=== PATIENT | male | born 1960 | race Caucasian/White ===

== ENCOUNTER 2025-08-30 06:48 | Outpatient (OUT) | payer BC, SELFPAY ==
--- NOTE | 2025-08-30 | NM_ITS ---
Patient Name: DONTE WHELAN MR#: [id number] : 1960 Exam Date: 08/30/2025 Ordering Doctor: DR CARO VAUGNH M.D. RADIOLOGY REPORT PROCEDURE: NM DOMENICA PERF SPECT REST STR COMPARISON: None. INDICATIONS: CHEST PAIN TECHNIQUE: Exam Description: Stress/Rest two day protocol gated SPECT Rest Imagin.3 mCi Tc-99m Cardiolite IV on 08/30/2025 Stress Imaging 31.9 mCi Tc-99m Cardiolite IV on 08/30/2025 Exercise Protocol: Philippe Heart Rate (bpm): Rest: 60 Max: 134 PMHR: 85 Blood Pressure: Rest: 128/70 Max: 150/88 Exercise Time: Minutes: 10 Seconds: 06 Stage Reached: Stage: 4 Mets 13.40 Symptoms: None Rest and peak stress ECG findings were pending, and the exercise portion of the study was pending per attending physician [facility]. For more details, please see separate cardiac stress test report. FINDINGS: QUALITY OF STUDY: Good PERFUSION DEFECT: LOCATION: N/A SIZE: N/A SEVERITY: N/A TYPE: N/A WALL MOTION: Normal wall motion LV SIZE: 98 mL. TID / TCD: 0.9 LVEF: Calculated EF 63%. SUMMARY: Myocardial perfusion imaging study is normal CONCLUSION: 1. Myocardial perfusion is normal 2. Global left ventricular systolic function is normal; ejection fraction is 63% 3. No transient ischemic dilatation Dictated by: Vincent Rios M.D. on 08/30/2025 at 16:56 Approved by: Vincent Rios M.D. on 08/30/2025 at 16:58
--- OUTSIDE RECORDS SUMMARY | 2025-08-30 06:52 | XMS_ITS | Clinical Summary ---
Author Organization [facility] Address [address], [address] [place] [address] Care Team Providers Care Personnel Representative Name Role Phone Stefania Gaytan MD Primary Care Provider [phone] Allergies No known active allergies Medications buprenorphine-na loxone (SUBOXONE) 8-[address] tablet Place 8 mg under the tongue 2 times daily. Active hyoscyamine (LEVBID) 0.375 MG CR tablet Take 1 tablet by mouth every 12 hours as needed for Cramping. 10 tablet 0 04/24/2014 Active Social History Tobacco Use Types Packs/Day Years Used Date Smoking Tobacco: Every Day Cigarettes Sex and Gender Information Value Date Recorded Sex Assigned at Not on file Legal Sex Male 9:22 AM EST Gender Identity Not on file Sexual Orientation Not on file Last Filed Vital Signs Vital Sign Reading Time Taken Comments Blood Pressure 92/58 04/24/2014 4:50 PM EDT Pulse 71 04/24/2014 4:50 PM EDT Temperature 36.8 C (98.2 F) 04/24/2014 4:50 PM EDT Respiratory Rate 16 04/24/2014 4:50 PM EDT Oxygen Saturation 94% 04/24/2014 4:46 PM EDT Inhaled Oxygen Concentration - - Weight 86.2 kg (190 lb) 04/24/2014 12:23 PM EDT Height - - Body Mass Index - - Plan of Treatment Not on file Care Teams Personnel Representative Relationship Specialty Start Date End Date Stefania Gaytan MD PCP - General 04/24/14
--- OUTSIDE RECORDS SUMMARY | 2025-08-30 06:52 | XMS_ITS | Encounter Summary ---
Author Organization [facility] Address [address] [facility] [place] [address] Care Team Providers Care Core Stacker Name Role Phone Stefania Gaytan MD Primary Care Provider Encounter Details Date Type Department Care Team (Latest Contact Info) Description 08/22/2025 Travel Social History Tobacco Use Types Packs/Day Years Used Date Smoking Tobacco: Every Day Cigarettes Comments:31 or more cigarett es a day, starts smoking 6-30 minutes after waking up Alcohol Use Standard Drinks/Week Comments Never 0 (1 standard drink = 0.6 oz pur e alcohol) Caffeine Intake: Coffee PHQ-2 Answer Date Recorded Patient Health Questionnaire-2 Score 2 07/30/2025 Sex and Gender Information Value Date Recorded Sex Assigned at Not on file Legal Sex Male 7:12 PM EDT Gender Identity Not on file Sexual Orientation Not on file documented as of this encounter Plan of Treatment Upcoming Encounters Date Type Department Care Team (Late st Contact Info) Description 09/10/2025 3:15 PM EDT Office Visit [facility] [address] [facility] [address] [place] [id number] Aguilar Gonzalez MD [address] [facility] [address] [place] [address] documented as of this encounter Visit Diagnoses Not on filedocumented in this encounter Care Teams Core Stacker Relationship Specialty Start Date End Date Stefania Gaytan MD [address] [facility] [address] [place] [address] PCP - General Family Medicine 03/22/23 documented as of this encounter
--- OUTSIDE RECORDS SUMMARY | 2025-08-30 06:52 | XMS_ITS | Clinical Summary ---
Author Organization [facility] Address [address] [place] [address] Care Team Providers Care Aged Or Disabled Care Worker Name Role Phone Stefania Gaytan MD Primary Care Provider [phone] Allergies No known active allergies Medications rosuvastatin (Crestor) 20 MG tabletIndication s:Dyslipidemia Take 1 tablet (20 mg) by mouth Daily 30 tablet 5 08/06/2025 Active Active Problems Problem Noted Date Diagnosed Date Chest pain 07/30/2025 Diarrhea 07/30/2025 Assessment & Plan (07/30/2025 4:49 PM EDT): Colonoscopy Encounter for screening colonoscopy 07/30/2025 Assessment & Plan (07/30/2025 4:46 PM EDT): Referral sent Abnormal glucose tolerance test 01/03/2024 Benign essential hypertension 01/03/2024 Assessment & Plan (01/03/2024 4:36 PM EST): Our specific goals, for your hypertension, is to keep your blood pressure less than 140/90, and the importance of weight control. We made recommendations on how to control your blood pressure, and minimize your risk of these copmplications. We also discussed your current barriers to a healthy living and importance of healthy diet and exercise. Prior to your visit today we have reviewed your chart and formed a plan to assist with providing you the best possible care. We reviewed the possible complications of hypertension including, stroke, heart failure and kidney impairment. In addition, we discussed your medications, the importance of taking them as prescribed. DASH diet handouts Well adult health check 01/03/2024 Assessment & Plan (07/30/2025 4:35 PM EDT): Modest Alcohol consumption No Tobacco Seat Belt use Exercise Regularly No Text Drive Social Accountability Pain in both knees 01/03/2024 Assessment & Plan (01/03/2024 4:36 PM EST): I discussed with patient that while on prednisone, do not take any NSAIDs like Ibuprofen, Naprosyn, Alleve or motrin. Watch for any side effects like abdominal pain and nausea. Take the prednisone with food or milk. Prednisone may increase appetite. While on prednisone, watch for any sugar elevations. Chronic pain of both shoulders 01/03/2024 Assessment & Plan (01/03/2024 4:39 PM EST): I discussed with patient that while on prednisone, do not take any NSAIDs like Ibuprofen, Naprosyn, Alleve or motrin. Watch for any side effects like abdominal pain and nausea. Take the prednisone with food or milk. Prednisone may increase appetite. While on prednisone, watch for any sugar elevations. Anxiety state 10/12/2023 Chronic obstructive pulmonar y disease with acute lower respiratory infection 10/12/2023 Other psychoactive substance dependence, uncompl icated 10/12/2023 Assessment & Plan (07/30/2025 4:43 PM EDT): resolved Severe acute respiratory syn drome coronavirus 2 (SARS-CoV-2) detected 10/12/2023 Smoker 10/12/2023 Assessment & Plan (07/30/2025 4:43 PM EDT): Discussed smoking cessation with the patient. Encouraged patient to try to cut back gradually and soon quit smoking. Discussed ways to quit smoking including gum, patches, medication, and gradually reducing the number of cigarettes smoked daily. Discussed potential health risks of mcc smoking. Patient voiced understanding. Benefits of cessation, both health and financial, were reviewed. Encounters Date Type Department Care Team Description 08/22/2025 Travel 08/08/2025 3:00 PM EDT Ancillary Procedure [facility] [address] [place] [phone] Bilateral carotid bruits 08/08/2025 Travel 08/05/2025 Results Follow-Up [facility] [address] [place] [address] Stefania Gaytan MD CBC and differential, Comprehensive metabolic panel, Lipid panel, Additional followed-up results: 2 08/01/2025 Abstract [facility] [address] [place] [address] Stefania Gaytan MD 07/30/2025 4:30 PM EDT Office Visit [facility] [address] [address] [place] [address] Stefania Gaytan MD Well adult health check (Primary Dx); Other psychoactive substance dependence, uncomplicated (HCC); Smoker; Chest pain, unspecified type; Encounter for screening colonoscopy; Diarrhea, unspecified type; Bilateral carotid bruits 07/30/2025 Bamboo flowsheet [facility] [address] [address] [place] [address] Stefania Gaytan MD 07/30/2025 Travel from Last 3 Months Immunizations Immunization Administration Dates Next Due Influenza, Recombinant, inje ctable, preservative free 09/11/2024 Influenza, injectable, MDCK, preservative free, quadrivalent 10/13/2023,10/29/2022,09/14/2020 Family History Medical History Relation Name Comments Stroke Mother Relation Name Status Comments Mother Alive Social History Tobacco Use Types Packs/Day Years Used Date Smoking Tobacco: Every Day Cigarettes Tobacco Cessation:Ready to Q uit: Not Asked; Counseling Given: Yes Comments:31 or more cigarettes a day, starts smoking 6-30 minutes after [...] Sign Reading Time Taken Comments Blood Pressure 128/80 07/30/2025 4:30 PM EDT Pulse 77 07/30/2025 4:30 PM EDT Temperature - - Respiratory Rate 16 07/30/2025 4:30 PM EDT Oxygen Saturation 97% 07/30/2025 4:30 PM EDT Inhaled Oxygen Concentration - - Weight 82.1 kg (181 lb) 07/30/2025 4:30 PM EDT Height 172.7 cm (5' 8 ) 07/30/2025 4:30 PM EDT Body Mass Index 27.52 07/30/2025 4:30 PM EDT Plan of Treatment Upcoming Encounters Date Type Department Care Team (Late st Contact Info) Description 09/10/2025 3:15 PM EDT Office Visit [facility] [address] [phone] Aguilar Gonzalez MD [address] [facility] [address] [place] [address] Health Maintenance Due Date Last Done Comments CT Colonography 1960 FIT-DNA 1960 FIT 1960 FOBT 1960 Sigmoidoscopy 1960 Colonoscopy 05/03/2023 05/03/2013 Colorectal Cancer Screening 05/03/2023 Influenza Vaccine (#1) 2025 4, 10/13/2023, 10/29/2022, Additional history exists Procedures Procedure Name Priority Date/Time Associated Diagnosis Comments VASC US CAROTID ARTERY DUPLEX BILATERAL Routine 08/08/2025 3:29 PM EDT Bilateral carotid bruits PSA, TOTAL Routine 07/30/2025 4:52 PM EDT Well adult health check LIPID PANEL Routine 07/30/2025 4:52 PM EDT Well adult health check COMPREHENSIVE METABOLIC PANEL Routine 07/30/2025 4:52 PM EDT Well adult health check CBC (INCLUDES DIFF/PLT) Routine 07/30/2025 4:52 PM EDT Well adult health check COLONOSCOPY Routine 05/03/2013 12:00 PM EDT from Last 3 Months or Most Recently Relevant to Health Maintenance Results * Vascular US carotid artery duplex bilateral (08/08/2025 3:29 PM EDT) Anatomical Region Laterality Modality Neck Ultrasound 08/09/2025 2:18 PM EDT Impressions 08/09/2025 2:23 PM EDT Less than 50% stenosis predicted of the bilateral internal carotid arteries. Antegrade flow of both vertebral arteries. Validated velocity measurements with angiographic measurements, velocity criteria are extrapolated from diameter data as defined by the Society of Radiologist in Ultrasound Consensus Conference Radiology 2003; 229;340-346. ELECTRONICALLY SIGNED BY: Lester Dalal DO Narrative 08/09/2025 2:23 PM EDT HISTORY: Carotid bruit COMPARISON: None available FINDINGS: The bilateral carotid duplex ultrasound study demonstrates the following: RIGHT LEFT Carotid plaque burden Mild Mild Common carotid artery 70 cm/s 68 cm/s Proximal internal carotid artery 100 cm/s 59 cm/s Mid internal carotid artery 121 cm/s 129 cm/s Distal internal carotid artery 111 cm/s 72 cm/s External carotid artery 172 cm/s 157 cm/s ICA/CCA ratio 1.45 1.55 Vertebral arteries antegrade flow Yes Yes Procedure Note Lester Dalal DO - 08/09/2025 HISTORY: Carotid bruit COMPARISON: None available FINDINGS: The bilateral carotid duplex ultrasound study demonstrates thefollowing: RIGHTLEFT Carotid plaque burden Mild Mild Common carotid artery 70 cm/s 68 cm/s Proximal internal carotid artery 100 cm/s 59 cm/s Mid internal carotid artery 121 cm/s 129cm/s Distal internal carotid artery 111 cm/s 72cm/s External carotid artery 172 cm/s 157cm/s ICA/CCA ratio 1.451.55 Vertebral arteries antegrade flow Yes Yes IMPRESSION: Less than 50% stenosis predicted of the bilateral internal carotidarteries. Antegrade flow of both vertebral arteries. Validated velocity measurements with angiographic measurements, velocitycriteria are extrapolated from diameter data as defined by the Society ofRadiologist in Ultrasound Consensus Conference Radiology 2003;229;340-346. ELECTRONICALLY SIGNED BY: Lester Dalal DO us Stefania Gaytan MD IMG US PROCEDURES Final Result * CBC and differential (07/30/2025 4:52 PM EDT) [facility] WHITE BLOOD CELL COUNT 9.5 3.8 - 10.8 Thousand/u L [facility] RED BLOOD CELL COUNT 4.95 4.20 - 5.80 Million/uL [facility] HEMOGLOBIN 15.4 13.2 - 17.1 g/dL [facility] HEMATOCRIT 46.0 38.5 - 50.0 % [facility] MCV 92.9 80.0 - 100.0 fL [facility] MCH 31.1 27.0 - 33.0 pg [facility] MCHC 33.5 32.0 - 36.0 g/dL [facility] Comment: For adults, a slight decrease in the calculated MCHC value (in the range of 30 to 32 g/dL) is most likely not clinically significant; however, it should be interpreted with caution in correlation with other red cell parameters and the patient's clinical condition. RDW 12.5 11.0 - 15.0 % [facility] PLATELET COUNT 263 140 - 400 Thousand/u L [facility] MPV 10.7 7.5 - 12.5 fL [facility] ABSOLUTE NEUTROPHILS 5,681 1,500 - 7,800 cells/uL [facility] ABSOLUTE LYMPHOCYTES 3,031 850 - 3,900 cells/uL [facility] ABSOLUTE MONOCYTES 618 200 - 950 cells/uL [facility] ABSOLUTE EOSINOPHILS 133 15 - 500 cells/uL [facility] ABSOLUTE BASOPHILS 38 0 - 200 cells/uL [facility] NEUTROPHILS 59.8 % [facility] LYMPHOCYTES 31.9 % [facility] MONOCYTES 6.5 % [facility] EOSINOPHILS 1.4 % [facility] BASOPHILS 0.4 % [facility] Blood Venous blood specimen / Unknown 07/30/2025 4:52 PM EDT 07/30/2025 4:52 PM EDT Narrative [facility] - 07/31/2025 7:49 AM EDT FASTING:YES FASTING: YES Resulting Agency Comment Performing Organization Information Site ID: QPT Name: [facility] Address: [address] [place] [address], [address] [place] [id number] Director: Gunner Katz MD us Stefania Gaytan MD LAB BLOOD ORDERABLES Final Resul t [facility] * PSA (07/30/2025 4:52 PM EDT) PSA, TOTAL 0.65 < OR = 4.00 ng/mL [facility] Comment: The total PSA value from this assay system is standardized against the WHO standard. The test result will be approximately 20% lower when compared to the equimolar-standardized total PSA ([place]). Comparison of serial PSA results should be interpreted with this fact in mind. This test was performed using the Siemens chemiluminescent method. Values obtained from different assay methods cannot be used interchangeably. PSA levels, regardless of value, should not be interpreted as absolute evidence of the presence or absence of disease. Blood Venous blood specimen / Unknown 07/30/2025 4:52 PM EDT 07/30/2025 4:52 PM EDT Narrative [facility] - 07/31/2025 7:49 AM EDT FASTING:YES FASTING: YES Resulting Agency Comment Performing Organization Information Site ID: QPT Name: [facility] Address: [address] [place] [address], [address] [place] [phone] Director: Gunner Katz MD Stefania Gaytan MD LAB BLOOD ORDERABLES Final Resul t [facility] * (ABNORMAL) Lipid panel (07/30/2025 4:52 PM EDT) CHOLESTEROL, TOTAL 222(H) <200 mg/dL [facility] HDL CHOLESTEROL 40 > OR = 40 mg/dL [facility] TRIGLYCERIDES 203(H) <150 mg/dL [facility] Comment: If a non-fasting specimen was collected, consider repeat triglyceride testing on a fasting specimen if clinically indicated. Madiha et al. J. of Clin. Lipidol. 2015;9:129-169. LDL CHOLESTEROL 148(H) mg/dL (calc) [facility] Comment: Reference range: <100 Desirable range <100 mg/dL for primary prevention; <70 mg/dL for patients with CHD or diabetic patients with > or = 2 CHD risk factors. LDL-C is now calculated using the Shereen calculation, which is a validated novel method providing better accuracy than the Friedewald equation in the estimation of LDL-C. Jake HILL et al. ROSALIND. 2013;310(19): 0456-0390 (http://education.Spitogatos.gr/faq/ATY059) CHOL/HDLC RATIO 5.6(H) <5.0 (calc) [facility] NON HDL CHOLESTEROL 182(H) <130 mg/dL (calc) [facility] Comment: For patients with diabetes plus 1 major ASCVD risk factor, treating to a non-HDL-C goal of <100 mg/dL (LDL-C of <70 mg/dL) is considered a therapeutic option. Blood Venous blood specimen / Unknown 07/30/2025 4:52 PM EDT 07/30/2025 4:52 PM EDT Narrative [facility] - 07/31/2025 7:49 AM EDT FASTING:YES FASTING: YES Resulting Agency Comment Performing Organization Information Site ID: QPT Name: [facility] Address: [address] [place] [address], [address] [place] [phone] Director: Gunner Katz MD us Stefania Gaytan MD LAB BLOOD ORDERABLES Final Resul t [facility] * Comprehensive metabolic panel (07/30/2025 4:52 PM EDT) Pathologist [facility] Glucose 88 65 - 99 mg/dL [facility] Comment: Fasting reference interval BUN 11 7 - 25 mg/dL [facility] Creatinine 1.00 0.70 - 1.35 mg/dL [facility] EGFR 85 > OR = 60 mL/min/1. 73m2 [facility] BUN/CREATININE RATIO SEE NOTE: 6 - 22 (calc) [facility] Comment: Not Reported: BUN and Creatinine are within reference range. Sodium 141 135 - 146 mmol/L [facility] Potassium, Bld 3.9 3.5 - 5.3 mmol/L [facility] Chloride 106 98 - 110 mmol/L [facility] Carbon Dioxide 25 20 - 32 mmol/L [facility] Calcium 9.8 8.6 - 10.3 mg/dL [facility] PROTEIN, TOTAL 7.1 6.1 - 8.1 g/dL [facility] ALBUMIN 4.6 3.6 - 5.1 g/dL [facility] GLOBULIN 2.5 1.9 - 3.7 g/dL (calc) [facility] ALBUMIN/GLOBULIN RATIO 1.8 1.0 - 2.5 (calc) [facility] BILIRUBIN, TOTAL 0.5 0.2 - 1.2 mg/dL [facility] ALKALINE PHOSPHATASE 72 35 - 144 U/L [facility] AST 18 10 - 35 U/L [facility] ALT 26 9 - 46 U/L [facility] Blood Venous blood specimen / Unknown 07/30/2025 4:52 PM EDT 07/30/2025 4:52 PM EDT Narrative [facility] - 07/31/2025 7:49 AM EDT FASTING:YES FASTING: YES Resulting Agency Comment Performing Organization Information Site ID: QPT Name: [facility] Address: [address] [place] [address], [address] [place] [phone] Director: Gunner Katz MD Stefania Gaytan MD LAB BLOOD ORDERABLES Final Resul t [facility] * Colonoscopy (05/03/2013 12:00 PM EDT) Anatomical Region Laterality Modality Endoscopy 05/03/2013 12:0 0 PM EDT Narrative 05/03/2013 12:00 PM EDT PERFORMED AT [facility] LOCATION:[id number] Procedure Note CONVERSION, GENERIC - 03/31/2023 PERFORMED AT [facility] LOCATION:[id number] Stefania Gaytan MD ENDOSCOPY PROCEDURE ORDERABLES F inal Result from Last 3 Months or Most Recently Relevant to Health Maintenance Insurance BS Care Teams Aged Or Disabled Care Worker Relationship Specialty Start Date End Date Stefania Gaytan MD [address] [address] PCP - General Family Medicine 03/22/23
--- NOTE | 2025-08-30 08:59 | PC.NURSE ---
Nursing Note Cardiac Stress Test Reviewed: Medication, allergies and patient history reviewed. Stress Test: [x ] Patient tolerated stress test well. [ ] Patient unable to tolerate walking on treadmill. Switched to Lexiscan stress test. [x ] No chest pain noted per patient [ ] Chest pain that resolved prior to leaving stress lab. [ ] No dyspnea noted. [ x] Dyspnea that resolved prior to leaving stress lab. [ x] Patient left stress lab asymptomatic and hemodynamically stable. [ ] Patient taken to the Emergency Room due to non-resolving symptoms following stress test. [ x] Patient achieved target heart rate. [ ] Patient unable to achieve target heart rate. [ ] Aminophylline administered as reversal agent to Lexiscan (Regadenoson). [ ] Nitro administered. Nursing Comments:
--- NOTE | 2025-08-30 18:47 | P.STRESS_ITS ---
Stress Test Stress Test Requesting physician: CARO VAUGHN Procedure: This was a Treadmill stress test with myocardial perfusion imaging performed at the [facility] on 08/30/2025. Intravenous line was secured. The patient was attached to electrocardiographic monitoring. Baseline vital signs and ECG were obtained. The patient exercised on the treadmill according to the Philippe protocol. Cardiolite was administered at peak exercise. The patient then went on to obtain myocardial perfusion imaging. Total exercise time was 10 minutes and 6 seconds. The patient reached stage IV of the Philippe protocol and achieved 13.4 METS. Resting heart rate was 60 bpm and peak heart rate was 134 bpm representing 85% of maximal predicted heart rate. Resting blood pressure was 128/70 and peak blood pressure was 150/88. The test was stopped due to target heart rate being achieved. General Information: Reason for Stress Test: Chest pain. Cardiac History and Risk Factors: Hyperlipidemia. Resting 12 - Lead Electrocardiogram: Sinus bradycardia. Stress Test: Protocol: Treadmill exercise, Philippe protocol. Exercise Capacity: Good. Blood Pressure Response: Resting elevated blood pressure, appropriate blood pressure response to exercise. Rhythm: Sinus, no arrhythmias noted. ST - Response: No ischemic ST changes seen. Patient Response: No chest pain. Shortness of breath reported. Interpretation: 1. No evidence of ischemic ECG changes seen following treadmill exercise. 2. Lundberg treadmill score of +10 is associated with low risk for long-term cardiac events. 3. Myocardial perfusion images will be reported separately.
== END 2025-08-30 06:49 | disposition home or self-care (01) ==
LOC: NM 06:50
PROVIDERS: PCP Family Medicine; Visit Provider Family Medicine
DX: R07.9 Chest pain, unspecified (principal)
CPT/HCPCS: 78452; 93017; A9500